=== PATIENT | female | born 1960 | race African-American/Black ===

== ENCOUNTER → 2017-04-14 | Outpatient (CLI) | payer OTHER ==
--- NOTE | 2017-04-14 10:17 | RAD ---
DATE: 04/14/2017 EXAM: DIGITAL SCREEN BILAT W/CAD HISTORY: Screening mammogram. Skin moles and lesions throughout both breasts. COMPARISON: Mammogram from 2015, 2014 and 2013. This study was interpreted with the benefit of Computerized Aided Detection (CAD). FINDINGS: Breast Density: SCATTERED The breast parenchyma shows scattered fibroglandular densities. Breast parenchyma level B. The skin and nipples are within normal limits. No suspicious calcifications, spiculated masses or areas of architectural distortion. Benign breast calcification. Likely bilateral intraparenchymal lymph nodes. IMPRESSION: No mammographic evidence of malignancy. BI-RADS CATEGORY: 2 BENIGN FINDING(S) RECOMMENDED FOLLOW-UP: 12M 12 MONTH FOLLOW-UP PQRS compliance statement: Patient information was entered into a reminder system with a target due date 04/14/2018 for the next mammogram. Mammography is a sensitive method for finding small breast cancers, but it does not detect them all and is not a substitute for careful clinical examination. A negative mammogram does not negate a clinically suspicious finding and should not result in delay in biopsying a clinically suspicious abnormality. "Our facility is accredited by the [employer] Mammography [employer]."
== END | disposition home or self-care (01) ==
LOC: MAMMO 09:30
PROVIDERS: ATTEND Family Medicine
DX: Z12.31 Encounter for screening mammogram for malignant neoplasm of breast (principal)
CPT/HCPCS: G0202; 77067

== ENCOUNTER → 2018-04-23 | Outpatient (CLI) | payer OTHER ==
--- NOTE | 2018-04-26 12:29 | RAD ---
DATE: April 23, 2018 EXAM: DIGITAL SCREEN BILAT W/CAD HISTORY: Screening study. COMPARISON: 2015 and 2017 This study was interpreted with the benefit of Computerized Aided Detection (CAD). FINDINGS: Breast Density: SCATTERED The breast parenchyma shows scattered fibroglandular densities. Breast parenchyma level B.. There are no dominant suspicious masses, suspicious microcalcifications or evidence of architectural distortion. IMPRESSION: No mammographic indicators for malignancy. BI-RADS CATEGORY: 1 NEGATIVE RECOMMENDED FOLLOW-UP: 12M 12 MONTH FOLLOW-UP PQRS compliance statement: Patient information was entered into a reminder system with a target due date April 24, 2019 for the next mammogram. Mammography is a sensitive method for finding small breast cancers, but it does not detect them all and is not a substitute for careful clinical examination. A negative mammogram does not negate a clinically suspicious finding and should not result in delay in biopsying a clinically suspicious abnormality. "Our facility is accredited by the [employer] Mammography [employer]." The patient's breast density may affect the ability of mammography to detect breast cancer. There are 4 categories of breast density, A, B, C and D. Breast density A means that most of the breast tissue is replaced with adipose tissue and therefore is not dense. Breast density B means that the breast tissue is mildly dense and scattered. Breast density C means that the breast tissue is heterogeneously dense. Breast density D means that the breast tissue is very dense. Breast densities especially C and D may decrease the sensitivity of mammography to detect breast cancer. Therefore, the patient may benefit from 3-D breast mammography (3D breast tomography) as a part of their screening mammogram. Insurance may or may not pay for this additional imaging. The patient's breast density based on today's mammogram is category B.
== END | disposition home or self-care (01) ==
LOC: MAMMO 14:50
PROVIDERS: ATTEND Pediatrics
DX: Z12.31 Encounter for screening mammogram for malignant neoplasm of breast (principal)
CPT/HCPCS: 77067

== ENCOUNTER 2018-09-18 22:35 | Inpatient (IN) | payer OTHER ==
[~2018-09-18] VITALS: Ht 165.1 cm; Wt 95.8 kg
[2018-09-18 23:27] LABS: BILIRUBIN,URINE NEGATIVE (NEG); CLARITY,URINE CLEAR; COLOR,URINE YELLOW; NITRITE,URINE NEGATIVE (NEG); PH,URINE 5.5; PROTEIN,URINE NEGATIVE (NEG-TRACE); UROBILINOGEN,URINE 0.2 mg/dL (0.2 mg/dL)
--- NOTE | 2018-09-18 23:31 | PHYS DOC ---
Adult General Chief Complaint Chief Complaint: ABDOMINAL PAIN HPI HPI Patient is a 58 year old f wtih cc of abdo pain epigastric x 3 days radiates to back wosre wtih eating, no fever sharp took motrin with minimal relief no etoh s/p mathew in the past. on trulicity for diabetes. Review of Systems Review of Systems Constitutional: Denies fever or chills [] Eyes: Denies change in visual acuity, redness, or eye pain [] HENT: Denies nasal congestion or sore throat [] Respiratory: Denies cough or shortness of breath [] Musculoskeletal: Denies back pain or joint pain [] Integument: Denies rash or skin lesions [] Neurologic: Denies headache, focal weakness or sensory changes [] Endocrine: Denies polyuria or polydipsia [] All other systems were reviewed and found to be within normal limits, except as documented in this note. Current Medications Current Medications Current Medications Medications (Trade) Dose Ordered Sig/Silvino Start Time Stop Time Status Last Admin Dose Admin Acetaminophen (Tylenol) 1,000 mg 1X ONCE 09/19/18 00:00 09/19/18 00:28 DC 09/19/18 00:38 1,000 MG Multi-Ingredient Mouthwash/Gargle (Gi Cocktail) 20 ml 1X ONCE 09/19/18 00:00 09/19/18 00:28 DC 09/19/18 00:38 20 ML Sodium Chloride 1,000 ml @ 1,000 mls/hr 1X ONCE 09/19/18 00:00 09/19/18 00:59 DC 09/19/18 00:40 1,000 MLS/HR Physical Exam Physical Exam Constitutional: Well developed, well nourished, no acute distress, non-toxic appearance. [] HENT: Normocephalic, atraumatic, bilateral external ears normal, oropharynx moist, no oral exudates, nose normal. [] Eyes: PERRLA, EOMI, conjunctiva normal, no discharge. [] Neck: Normal range of motion, no tenderness, supple, no stridor. [] Cardiovascular:mild tachy Lungs & Thorax: Bilateral breath sounds clear to auscultation [] Abdomen: Bowel sounds normal, soft, epigastric tenderness, no masses, no pulsatile masses. [] Skin: Warm, dry, no erythema, no rash. [] Back: No tenderness, no CVA tenderness. [] Extremities: No tenderness, no cyanosis, no clubbing, ROM intact, no edema. [] Neurologic: Alert and oriented X 3, normal motor function, normal sensory function, no focal deficits noted. [] Psychologic: Affect normal, judgement normal, mood normal. [] Current Patient Data Vital Signs Vital Signs Date Time Temp Pulse Resp B/P (MAP) Pulse Ox O2 Delivery O2 Flow Rate FiO2 09/18/18 23:39 97.6 116 18 143/88 (106) 96 97.6 Lab Values Laboratory Tests Test 09/18/18 22:35 09/18/18 22:48 09/18/18 23:35 Urine Collection Type Unknown Urine Color Yellow Urine Clarity Clear Urine pH 5.5 Urine Specific [place] 1.025 Urine Protein Negative mg/dL (NEG-TRACE) Urine Glucose (UA) Negative mg/dL (NEG) Urine Ketones (Stick) Negative mg/dL (NEG) Urine Blood Negative (NEG) Urine Nitrite Negative (NEG) Urine Bilirubin Negative (NEG) Urine Urobilinogen Dipstick 0.2 mg/dL (0.2 mg/dL) Urine Leukocyte Esterase Small (NEG) Urine RBC 0 /HPF (0-2) Urine WBC 1-4 /HPF (0-4) Urine Squamous Epithelial Cells Many /LPF Urine Bacteria Few /HPF (0-FEW) Urine Mucus Marked /LPF POC Urine HCG, Qualitative Hcg negative (Negative) White Blood Count 10.0 x10^3/uL (4.0-11.0) Red Blood Count 4.66 x10^6/uL (3.50-5.40) Hemoglobin 13.0 g/dL (12.0-15.5) Hematocrit 39.2 % (36.0-47.0) Mean Corpuscular Volume 84 fL (79-100) Mean Corpuscular Hemoglobin 28 pg (25-35) Mean Corpuscular Hemoglobin Concent 33 g/dL (31-37) Red Cell Distribution Width 14.8 % (11.5-14.5) H Platelet Count 272 x10^3/uL (140-400) Neutrophils (%) (Auto) 66 % (31-73) Lymphocytes (%) (Auto) 23 % (24-48) L Monocytes (%) (Auto) 8 % (0-9) Eosinophils (%) (Auto) 2 % (0-3) Basophils (%) (Auto) 1 % (0-3) Neutrophils # (Auto) 6.6 x10^3uL (1.8-7.7) Lymphocytes # (Auto) 2.3 x10^3/uL (1.0-4.8) Monocytes # (Auto) 0.8 x10^3/uL (0.0-1.1) Eosinophils # (Auto) 0.2 x10^3/uL (0.0-0.7) Basophils # (Auto) 0.1 x10^3/uL (0.0-0.2) Sodium Level 141 mmol/L (136-145) Potassium Level 4.0 mmol/L (3.5-5.1) Chloride Level 102 mmol/L (98-107) Carbon Dioxide Level 28 mmol/L (21-32) Anion Gap 11 (6-14) Blood Urea Nitrogen 12 mg/dL (7-20) Creatinine 0.9 mg/dL (0.6-1.0) Estimated GFR (Cockcroft-Gault) 77.8 BUN/Creatinine Ratio 13 (6-20) Glucose Level 174 mg/dL (70-99) H Calcium Level 9.5 mg/dL (8.5-10.1) Total Bilirubin 0.4 mg/dL (0.2-1.0) Aspartate Amino Transferase (AST) 14 U/L (15-37) L Alanine Aminotransferase (ALT) 21 U/L (14-59) Alkaline Phosphatase 92 U/L (46-116) Troponin I Quantitative < 0.017 ng/mL (0.000-0.055) Total Protein 8.3 g/dL (6.4-8.2) H Albumin 3.9 g/dL (3.4-5.0) Albumin/Globulin Ratio 0.9 (1.0-1.7) L Lipase 1348 U/L (73-393) H Laboratory Tests 09/18/18 23:35 Laboratory Tests 09/18/18 23:35 EKG EKG [@2324; HR 114BPM; sinus tachycardia.no definite ischemic changes Radiology/Procedures Radiology/Procedures [] Impressions: IMPRESSION: 1. Findings of acute edematous interstitial pancreatitis. No evidence of pseudocyst. 2. Fibroid uterus. Electronically signed by: Nithin Porter DO (09/19/2018 1:55 AM) [facility] Course & Med Decision Making Course & Med Decision Making Pertinent Labs and Imaging studies reviewed. (See chart for details) []58 yo f with pancreatitis first episode unclear etiology was tachy on arrival improved after fluids. ?trulicity unsure exactly of etiology will admit for gi consult, hydration pain control admit to hospitalist service per usual local protocol Dragon Disclaimer Dragon Disclaimer This electronic medical record was generated, in whole or in part, using a voice recognition dictation system. Departure Departure Impression: Primary Impression: Pancreatitis Disposition: 09 ADMITTED INPATIENT Admitting Physician: Other Condition: STABLE Referrals: HARVEY ROCHA MD (PCP) LUMA FULLER MD Sep 18, 2018 23:31
[2018-09-18 23:36] LABS: BACTERIA,URINE FEW /HPF (0-FEW); RBC,URINE 0 /HPF (0-2); SQUAMOUS EPITHELIAL CELL,UR MANY /LPF
[2018-09-18 23:41] LABS: BASO # 0.1 x10^3/uL (0.0-0.2); BASO % 1 % (0-3); EOS # 0.2 x10^3/uL (0.0-0.7); EOS % 2 % (0-3); HEMATOCRIT 39.2 % (36.0-47.0); LYMPH # 2.3 x10^3/uL (1.0-4.8); LYMPH % 23 % (24-48); MEAN CORPUSCULAR HEMOGLOBIN 28 pg (25-35); MEAN CORPUSCULAR HGB CONC 33 g/dL (31-37); MEAN CORPUSCULAR VOLUME 84 fL (79-100); MONO # 0.8 x10^3/uL (0.0-1.1); MONO % 8 % (0-9); NEUT # 6.6 x10^3uL (1.8-7.7); NEUT % 66 % (31-73); PLATELET COUNT 272 x10^3/uL (140-400); RED BLOOD COUNT 4.66 x10^6/uL (3.50-5.40); RED CELL DISTRIBUTION WIDTH 14.8 % (11.5-14.5)
[2018-09-18 23:49] LABS: CALCIUM 9.5 mg/dL (8.5-10.1); CREATININE 0.9 mg/dL (0.6-1.0); GFR 77.8
[2018-09-18 23:55] LABS: ALBUMIN 3.9 g/dL (3.4-5.0); ALBUMIN/GLOBULIN RATIO 0.9 (1.0-1.7); TOTAL BILIRUBIN 0.4 mg/dL (0.2-1.0); TOTAL PROTEIN 8.3 g/dL (6.4-8.2)
[2018-09-19] MEDS ORDERED: ACETAMINOPHEN 500 MG TABLET PO ONE
[2018-09-19] MEDS ORDERED: IV NORMAL SALINE 1000ML BAG 1,000 ML IV ONE
[2018-09-19] MEDS ORDERED: LIDO:MAALOX 1:1 20 ML SINGLE DOSE. SWSW ONE
[2018-09-19] MEDS ORDERED: ONDANSETRON PF 4 MG/2 ML VIAL. IV PRN (00:30)
[2018-09-19] MEDS: MORPHINE SULFATE 4 MG/ML VIAL. IV PRN ×2 (00:39→08:50)
--- NOTE | 2018-09-19 01:10 | NUR ---
The patient, KHURRAM CHAVEZ, 58 y/o, F admitted by IRAM SANTOYO MD, was given written information regarding hospital policies, unit procedures and contact persons. Patient arrived in room 560 at this time. Patient was transported via wheelchair by ED staff. Valuables were checked and noted. Patient is resting in bed with family at the bedside. Patient states no pain or other needs at this time. This RN will continue to monitor this patient.
[2018-09-19] MEDS ORDERED: IOHEXOL 300 MG/ML 100ML VIAL. IV ONE (01:30)
[2018-09-19] MEDS ORDERED: CONTRAST GIVEN. MC PRN (01:30)
--- NOTE | 2018-09-19 01:58 | RAD ---
PQRS Compliance statement: One or more of the following individualized dose reduction techniques were utilized for this examination: 1. Automated exposure control. 2. Adjustment of the mA and/or kV according to patient size. 3. Use of iterative reconstruction technique. Indication:pancreatitis, r/o pseudocyst, abscess, OMNI 300, 75ml TECHNIQUE: CT abdomen and pelvis with IV contrast with multiplanar reformats. COMPARISON: None FINDINGS: Heart is normal in size. No pericardial or pleural effusion. Clear lung bases. Liver, spleen, adrenals within normal limits. Status post cholecystectomy. Mild peripancreatic inflammatory changes seen adjacent to the pancreatic tail. No peripancreatic fluid collection. No nephrolithiasis or hydronephrosis. No enlarged retroperitoneal or pelvic adenopathy. No free pelvic fluid or ascites. No bowel obstruction. Normal appendix. Uterus is anteverted with multiple fibroids, the largest measuring 4.5 x 4.1 cm in the fundus. Urinary bladder is within normal limits. No pneumoperitoneum. No suspicious bony lesion. IMPRESSION: 1. Findings of acute edematous interstitial pancreatitis. No evidence of pseudocyst. 2. Fibroid uterus. Electronically signed by: Nithin Porter DO (09/19/2018 1:55 AM) [facility]
[2018-09-19 03:00] VITALS: BP 147/94
[2018-09-19] MEDS: IV NORMAL SALINE 1000ML BAG 1,000 ML IV SCH ×3 (03:34→16:30)
[2018-09-19 07:00] VITALS: BP 132/89
--- NOTE | 2018-09-19 10:33 | PDOC2 ---
CONSULT Date of Consult Date of Consult DATE: 09/19/18 TIME: 10:20 Reason for Consult Reason for Consult: acute pancreatitis History of Present Illness Reason for Visit: This is a 58 yo female with history of DM on Trulicity for 2 years and with history of GERD on pantoprazole and cholecystectomy for gallstones 30 years ago. Presents now with 2 days of epigastric pain- she thought from augmentin which gives her gas but progressed. Cme to ER where CT and labs suggest pancreatitis- new onset - she denies alcohol and NO prior history of pancreatitis. Prior to now, only occasional gas, no abd pain or severe dyspeptic symptoms, only heartburn controlled by PPI. Had colonoscopy about 5 years ago- small polyp removed. Past Medical History GI: GERD Endocrine: Diabetes Past Surgical History Past Surgical History: Cholecystectomy Social History No ALCOHOL: rare Current Medications Current Medications Current Medications Sodium Chloride 1,000 ml @ 1,000 mls/hr 1X ONCE IV Last administered on at 00:40; Start 09/19/18 at 00:00; Stop 09/19/18 at 00:59; Status DC Multi-Ingredient Mouthwash/Gargle (Gi Cocktail) 20 ml 1X ONCE SWSW Last administered on 09/19/18at 00:38; Start 09/19/18 at 00:00; Stop 09/19/18 at 00:28 ; Status DC Acetaminophen (Tylenol) 1,000 mg 1X ONCE PO Last administered on 09/19/18at 00: 38; Start 09/19/18 at 00:00; Stop 09/19/18 at 00:28; Status DC Ondansetron HCl (Zofran) 4 mg PRN Q8HRS PRN IV NAUSEA/VOMITING Last administered on 09/19/18at 00:40; Start 09/19/18 at 00:30; Stop 09/20/18 at 00:29 Morphine Sulfate (Morphine Sulfate) 4 mg PRN Q2HR PRN IV PAIN Last administered on 09/19/18at 08:50; Start 09/19/18 at 00:30; Stop 09/20/18 at 00:29 Sodium Chloride 1,000 ml @ 125 mls/hr Q8H IV Last administered on 09/19/18at 03 :34; Start 09/19/18 at 00:30; Stop 09/20/18 at 00:29 Iohexol (Omnipaque 300 Mg/ml) 75 ml 1X ONCE IV Last administered on 09/19/18at 01:44; Start 09/19/18 at 01:30; Stop 09/19/18 at 01:31; Status DC Info (CONTRAST GIVEN -- Rx MONITORING) 1 each PRN DAILY PRN MC SEE COMMENTS; Start 09/19/18 at 01:30; Stop 09/21/18 at 01:29 Allergies Allergies: Coded Allergies: No Known Drug Allergies (Unverified , 09/19/18) ROS Gastrointestinal: Yes Abdominal Pain Physical Exam General: Alert, Oriented X3 HEENT: PERRLA Lungs: Clear to auscultation Heart: Regular rate, Normal S1, Normal S2 Abdomen: Normal bowel sounds, Soft, No hepatosplenomegaly, Other (very mild tenderness) Extremities: No clubbing, No cyanosis Neuro: Normal gait, Normal speech Psych/Mental Status: Mental status NL Vitals VITALS Vital Signs Date Time Temp Pulse Resp B/P (MAP) Pulse Ox O2 Delivery O2 Flow Rate FiO2 09/19/18 08:50 96 Room Air 09/19/18 07:00 98.3 103 18 132/89 (103) 98.3 Labs Labs Laboratory Tests Test 09/18/18 22:35 09/18/18 22:48 09/18/18 23:35 Urine Collection Type Unknown Urine Color Yellow Urine Clarity Clear Urine pH 5.5 Urine Specific [place] 1.025 Urine Protein Negative mg/dL (NEG-TRACE) Urine Glucose (UA) Negative mg/dL (NEG) Urine Ketones (Stick) Negative mg/dL (NEG) Urine Blood Negative (NEG) Urine Nitrite Negative (NEG) Urine Bilirubin Negative (NEG) Urine Urobilinogen Dipstick 0.2 mg/dL (0.2 mg/dL) Urine Leukocyte Esterase Small (NEG) Urine RBC 0 /HPF (0-2) Urine WBC 1-4 /HPF (0-4) Urine Squamous Epithelial Cells Many /LPF Urine Bacteria Few /HPF (0-FEW) Urine Mucus Marked /LPF Bedside Urine HCG, Qualitative Hcg negative (Negative) White Blood Count 10.0 x10^3/uL (4.0-11.0) Red Blood Count 4.66 x10^6/uL (3.50-5.40) Hemoglobin 13.0 g/dL (12.0-15.5) Hematocrit 39.2 % (36.0-47.0) Mean Corpuscular Volume 84 fL (79-100) Mean Corpuscular Hemoglobin 28 pg (25-35) Mean Corpuscular Hemoglobin Concent 33 g/dL (31-37) Red Cell Distribution Width 14.8 % (11.5-14.5) Platelet Count 272 x10^3/uL (140-400) Neutrophils (%) (Auto) 66 % (31-73) Lymphocytes (%) (Auto) 23 % (24-48) Monocytes (%) (Auto) 8 % (0-9) Eosinophils (%) (Auto) 2 % (0-3) Basophils (%) (Auto) 1 % (0-3) Neutrophils # (Auto) 6.6 x10^3uL (1.8-7.7) Lymphocytes # (Auto) 2.3 x10^3/uL (1.0-4.8) Monocytes # (Auto) 0.8 x10^3/uL (0.0-1.1) Eosinophils # (Auto) 0.2 x10^3/uL (0.0-0.7) Basophils # (Auto) 0.1 x10^3/uL (0.0-0.2) Sodium Level 141 mmol/L (136-145) Potassium Level 4.0 mmol/L (3.5-5.1) Chloride Level 102 mmol/L (98-107) Carbon Dioxide Level 28 mmol/L (21-32) Anion Gap 11 (6-14) Blood Urea Nitrogen 12 mg/dL (7-20) Creatinine 0.9 mg/dL (0.6-1.0) Estimated GFR (Cockcroft-Gault) 77.8 BUN/Creatinine Ratio 13 (6-20) Glucose Level 174 mg/dL (70-99) Calcium Level 9.5 mg/dL (8.5-10.1) Total Bilirubin 0.4 mg/dL (0.2-1.0) Aspartate Amino Transf (AST/SGOT) 14 U/L (15-37) Alanine Aminotransferase (ALT/SGPT) 21 U/L (14-59) Alkaline Phosphatase 92 U/L (46-116) Troponin I Quantitative < 0.017 ng/mL (0.000-0.055) Total Protein 8.3 g/dL (6.4-8.2) Albumin 3.9 g/dL (3.4-5.0) Albumin/Globulin Ratio 0.9 (1.0-1.7) Lipase 1348 U/L (73-393) Laboratory Tests Test 09/18/18 22:35 09/18/18 22:48 09/18/18 23:35 Urine Collection Type Unknown Urine Color Yellow Urine Clarity Clear Urine pH 5.5 Urine Specific [place] 1.025 Urine Protein Negative mg/dL (NEG-TRACE) Urine Glucose (UA) Negative mg/dL (NEG) Urine Ketones (Stick) Negative mg/dL (NEG) Urine Blood Negative (NEG) Urine Nitrite Negative (NEG) Urine Bilirubin Negative (NEG) Urine Urobilinogen Dipstick 0.2 mg/dL (0.2 mg/dL) Urine Leukocyte Esterase Small (NEG) Urine RBC 0 /HPF (0-2) Urine WBC 1-4 /HPF (0-4) Urine Squamous Epithelial Cells Many /LPF Urine Bacteria Few /HPF (0-FEW) Urine Mucus Marked /LPF Bedside Urine HCG, Qualitative Hcg negative (Negative) White Blood Count 10.0 x10^3/uL (4.0-11.0) Red Blood Count 4.66 x10^6/uL (3.50-5.40) Hemoglobin 13.0 g/dL (12.0-15.5) Hematocrit 39.2 % (36.0-47.0) Mean Corpuscular Volume 84 fL (79-100) Mean Corpuscular Hemoglobin 28 pg (25-35) Mean Corpuscular Hemoglobin Concent 33 g/dL (31-37) Red Cell Distribution Width 14.8 % (11.5-14.5) Platelet Count 272 x10^3/uL (140-400) Neutrophils (%) (Auto) 66 % (31-73) Lymphocytes (%) (Auto) 23 % (24-48) Monocytes (%) (Auto) 8 % (0-9) Eosinophils (%) (Auto) 2 % (0-3) Basophils (%) (Auto) 1 % (0-3) Neutrophils # (Auto) 6.6 x10^3uL (1.8-7.7) Lymphocytes # (Auto) 2.3 x10^3/uL (1.0-4.8) Monocytes # (Auto) 0.8 x10^3/uL (0.0-1.1) Eosinophils # (Auto) 0.2 x10^3/uL (0.0-0.7) Basophils # (Auto) 0.1 x10^3/uL (0.0-0.2) Sodium Level 141 mmol/L (136-145) Potassium Level 4.0 mmol/L (3.5-5.1) Chloride Level 102 mmol/L (98-107) Carbon Dioxide Level 28 mmol/L (21-32) Anion Gap 11 (6-14) Blood Urea Nitrogen 12 mg/dL (7-20) Creatinine 0.9 mg/dL (0.6-1.0) Estimated GFR (Cockcroft-Gault) 77.8 BUN/Creatinine Ratio 13 (6-20) Glucose Level 174 mg/dL (70-99) Calcium Level 9.5 mg/dL (8.5-10.1) Total Bilirubin 0.4 mg/dL (0.2-1.0) Aspartate Amino Transf (AST/SGOT) 14 U/L (15-37) Alanine Aminotransferase (ALT/SGPT) 21 U/L (14-59) Alkaline Phosphatase 92 U/L (46-116) Troponin I Quantitative < 0.017 ng/mL (0.000-0.055) Total Protein 8.3 g/dL (6.4-8.2) Albumin 3.9 g/dL (3.4-5.0) Albumin/Globulin Ratio 0.9 (1.0-1.7) Lipase 1348 U/L (73-393) Images Images CT- pancreatitis without mass or CBD dilation s/p mathew Assessment/Plan Assessment/Plan Acute pancreatitis- apparently new- main risk factor is not alcohol or gallstones (s/p mathew and no LFT abnormalities or CBD changes on CT). Has been on Trulicity for 2 years but this could be related as trigger. Plan- stop Trulicity and later consult with endocrine regarding options going forward NPO then CLD with pain control for pancreatitis ALHAJI LI MD Sep 19, 2018 10:33
[2018-09-19 10:42] VITALS: BP 129/81
--- NOTE | 2018-09-19 12:27 | PDOC1 ---
History and Physical Date of Admission Date of Admission 09/19/18 Identification/Chief Complaint Chief Complaint ronald norris Source Source: Chart review, Patient History of Present Illness History of Present Illness Patient is a 58 yo female with history of DM on Trulicity for 2 years who had been in her usual stated of health until his prior to her admission when she started complaining of epigastric pain with radiation to the back. The patient describes the pain as a sharp sensation 9-10 out of 10 intensity at the worst times intermittent not associated with nausea vomiting or diarrhea. The patient describes her diet very rich in cheese. But she has been doing this for a long time, the patient denies having fried foods, or any other dietary transgressions. The patient also carries a history of GERD on pantoprazole. She had a cholecystectomy for gallstones 30 years ago. She denies excessive alcohol intake no history of liver disease no history of black tarry stools nor hematemesis reported. She was found to have findings consistent with pancreatitis on imaging studies and laboratory data which confirms her diagnosis. Given that the patient has been on to elicit the this will have to be discontinued moving forward Of care has been explained in detail to the patient addressed all the concerns of the best of my abilities Past Medical History GI: GERD Endocrine: Diabetes Past Surgical History Past Surgical History: Cholecystectomy Social History Smoke: No ALCOHOL: rare Current Medications Current Medications Current Medications Medications (Trade) Dose Ordered Sig/Silvino Start Time Stop Time Status Last Admin Dose Admin Acetaminophen (Tylenol) 1,000 mg 1X ONCE 09/19/18 00:00 09/19/18 00:28 DC 09/19/18 00:38 1,000 MG Info (CONTRAST GIVEN -- Rx MONITORING) 1 each PRN DAILY PRN 09/19/18 01:30 09/21/18 01:29 Iohexol (Omnipaque 300 Mg/ml) 75 ml 1X ONCE 09/19/18 01:30 09/19/18 01:31 DC 09/19/18 01:44 75 ML Morphine Sulfate (Morphine Sulfate) 4 mg PRN Q2HR PRN 09/19/18 00:30 09/20/18 00:29 09/19/18 08:50 4 MG Multi-Ingredient Mouthwash/Gargle (Gi Cocktail) 20 ml 1X ONCE 09/19/18 00:00 09/19/18 00:28 DC 09/19/18 00:38 20 ML Ondansetron HCl (Zofran) 4 mg PRN Q8HRS PRN 09/19/18 00:30 09/20/18 00:29 09/19/18 00:40 4 MG Sodium Chloride 1,000 ml @ 125 mls/hr Q8H 09/19/18 00:30 09/20/18 00:29 09/19/18 03:34 125 MLS/HR Allergies Allergies Allergies Coded Allergies Type Severity Reaction Last Updated Verified No Known Drug Allergies 09/19/18 No ROS Review of System CONSTITUTIONAL: No fever or chills EYES: No recent changes SKIN: No rash or itching CARDIOVASCULAR: No chest pain, syncope, palpitations, or edema RESPIRATORY: No SOB or cough GASTROINTESTINAL: No nausea, vomiting or abdominal pain NEUROLOGICAL: No headaches or weakness ENDOCRINE: No cold or heat intolerance GENITOURINARY: No urgency or frequency of urination MUSCULOSKELETAL: No back pain or joint pain LYMPHATICS: No enlarged lymph nodes PSYCHIATRIC: No anxiety or depression Physical Exam Physical Exam GEN.: No apparent distress. Alert and oriented. HEENT: Head is normocephalic, atraumatic NECK: Supple. LUNGS: Clear to auscultation. HEART: RRR, S1, S2 present. Peripheral pulses intact ABDOMEN: Soft, nontender. Positive bowel sounds. EXTREMITIES: Without any cyanosis. NEUROLOGIC: Normal speech, normal tone PSYCHIATRIC: Normal affect, normal mood. SKIN: No ulcerations Vitals Vitals Vital Signs Date Time Temp Pulse Resp B/P (MAP) Pulse Ox O2 Delivery O2 Flow Rate FiO2 09/19/18 10:42 97.8 103 18 129/81 (97) 95 Room Air 97.8 Labs Labs Laboratory Tests Test 09/18/18 22:35 09/18/18 22:48 09/18/18 23:35 Urine Collection Type Unknown Urine Color Yellow Urine Clarity Clear Urine pH 5.5 Urine Specific [place] 1.025 Urine Protein Negative mg/dL (NEG-TRACE) Urine Glucose (UA) Negative mg/dL (NEG) Urine Ketones (Stick) Negative mg/dL (NEG) Urine Blood Negative (NEG) Urine Nitrite Negative (NEG) Urine Bilirubin Negative (NEG) Urine Urobilinogen Dipstick 0.2 mg/dL (0.2 mg/dL) Urine Leukocyte Esterase Small (NEG) Urine RBC 0 /HPF (0-2) Urine WBC 1-4 /HPF (0-4) Urine Squamous Epithelial Cells Many /LPF Urine Bacteria Few /HPF (0-FEW) Urine Mucus Marked /LPF Bedside Urine HCG, Qualitative Hcg negative (Negative) White Blood Count 10.0 x10^3/uL (4.0-11.0) Red Blood Count 4.66 x10^6/uL (3.50-5.40) Hemoglobin 13.0 g/dL (12.0-15.5) Hematocrit 39.2 % (36.0-47.0) Mean Corpuscular Volume 84 fL (79-100) Mean Corpuscular Hemoglobin 28 pg (25-35) Mean Corpuscular Hemoglobin Concent 33 g/dL (31-37) Red Cell Distribution Width 14.8 % (11.5-14.5) Platelet Count 272 x10^3/uL (140-400) Neutrophils (%) (Auto) 66 % (31-73) Lymphocytes (%) (Auto) 23 % (24-48) Monocytes (%) (Auto) 8 % (0-9) Eosinophils (%) (Auto) 2 % (0-3) Basophils (%) (Auto) 1 % (0-3) Neutrophils # (Auto) 6.6 x10^3uL (1.8-7.7) Lymphocytes # (Auto) 2.3 x10^3/uL (1.0-4.8) Monocytes # (Auto) 0.8 x10^3/uL (0.0-1.1) Eosinophils # (Auto) 0.2 x10^3/uL (0.0-0.7) Basophils # (Auto) 0.1 x10^3/uL (0.0-0.2) Sodium Level 141 mmol/L (136-145) Potassium Level 4.0 mmol/L (3.5-5.1) Chloride Level 102 mmol/L (98-107) Carbon Dioxide Level 28 mmol/L (21-32) Anion Gap 11 (6-14) Blood Urea Nitrogen 12 mg/dL (7-20) Creatinine 0.9 mg/dL (0.6-1.0) Estimated GFR (Cockcroft-Gault) 77.8 BUN/Creatinine Ratio 13 (6-20) Glucose Level 174 mg/dL (70-99) Calcium Level 9.5 mg/dL (8.5-10.1) Total Bilirubin 0.4 mg/dL (0.2-1.0) Aspartate Amino Transf (AST/SGOT) 14 U/L (15-37) Alanine Aminotransferase (ALT/SGPT) 21 U/L (14-59) Alkaline Phosphatase 92 U/L (46-116) Troponin I Quantitative < 0.017 ng/mL (0.000-0.055) Total Protein 8.3 g/dL (6.4-8.2) Albumin 3.9 g/dL (3.4-5.0) Albumin/Globulin Ratio 0.9 (1.0-1.7) Lipase 1348 U/L (73-393) Laboratory Tests Test 09/18/18 22:35 09/18/18 22:48 09/18/18 23:35 Urine Collection Type Unknown Urine Color Yellow Urine Clarity Clear Urine pH 5.5 Urine Specific [place] 1.025 Urine Protein Negative mg/dL (NEG-TRACE) Urine Glucose (UA) Negative mg/dL (NEG) Urine Ketones (Stick) Negative mg/dL (NEG) Urine Blood Negative (NEG) Urine Nitrite Negative (NEG) Urine Bilirubin Negative (NEG) Urine Urobilinogen Dipstick 0.2 mg/dL (0.2 mg/dL) Urine Leukocyte Esterase Small (NEG) Urine RBC 0 /HPF (0-2) Urine WBC 1-4 /HPF (0-4) Urine Squamous Epithelial Cells Many /LPF Urine Bacteria Few /HPF (0-FEW) Urine Mucus Marked /LPF Bedside Urine HCG, Qualitative Hcg negative (Negative) White Blood Count 10.0 x10^3/uL (4.0-11.0) Red Blood Count 4.66 x10^6/uL (3.50-5.40) Hemoglobin 13.0 g/dL (12.0-15.5) Hematocrit 39.2 % (36.0-47.0) Mean Corpuscular Volume 84 fL (79-100) Mean Corpuscular Hemoglobin 28 pg (25-35) Mean Corpuscular Hemoglobin Concent 33 g/dL (31-37) Red Cell Distribution Width 14.8 % (11.5-14.5) Platelet Count 272 x10^3/uL (140-400) Neutrophils (%) (Auto) 66 % (31-73) Lymphocytes (%) (Auto) 23 % (24-48) Monocytes (%) (Auto) 8 % (0-9) Eosinophils (%) (Auto) 2 % (0-3) Basophils (%) (Auto) 1 % (0-3) Neutrophils # (Auto) 6.6 x10^3uL (1.8-7.7) Lymphocytes # (Auto) 2.3 x10^3/uL (1.0-4.8) Monocytes # (Auto) 0.8 x10^3/uL (0.0-1.1) Eosinophils # (Auto) 0.2 x10^3/uL (0.0-0.7) Basophils # (Auto) 0.1 x10^3/uL (0.0-0.2) Sodium Level 141 mmol/L (136-145) Potassium Level 4.0 mmol/L (3.5-5.1) Chloride Level 102 mmol/L (98-107) Carbon Dioxide Level 28 mmol/L (21-32) Anion Gap 11 (6-14) Blood Urea Nitrogen 12 mg/dL (7-20) Creatinine 0.9 mg/dL (0.6-1.0) Estimated GFR (Cockcroft-Gault) 77.8 BUN/Creatinine Ratio 13 (6-20) Glucose Level 174 mg/dL (70-99) Calcium Level 9.5 mg/dL (8.5-10.1) Total Bilirubin 0.4 mg/dL (0.2-1.0) Aspartate Amino Transf (AST/SGOT) 14 U/L (15-37) Alanine Aminotransferase (ALT/SGPT) 21 U/L (14-59) Alkaline Phosphatase 92 U/L (46-116) Troponin I Quantitative < 0.017 ng/mL (0.000-0.055) Total Protein 8.3 g/dL (6.4-8.2) Albumin 3.9 g/dL (3.4-5.0) Albumin/Globulin Ratio 0.9 (1.0-1.7) Lipase 1348 U/L (73-393) VTE Prophylaxis Ordered VTE Prophylaxis Devices: Yes VTE Pharmacological Prophylaxi: No Assessment/Plan Assessment/Plan Acute pancreatitis Abdominal pain secondary to the above resolved Dietary transgression with excess fat in diet History of GERD Obesity with a BMI of 35 Plan: Continue with nothing by mouth except ice chips for comfort IV fluid resuscitation with alar We will readdress in the a.m. Further recommendations based on the clinical course DVT prophylaxis with SCD and CHACHA Rhoades MD Sep 19, 2018 12:27
[2018-09-19 14:36] VITALS: BP 132/74
--- NOTE | 2018-09-19 16:30 | NUR ---
The bag of fluids is still full and running.
[2018-09-19 19:00] VITALS: BP 150/90
[2018-09-19 23:00] VITALS: BP 148/99
[2018-09-20 03:00] VITALS: BP 145/95
[2018-09-20 07:00] VITALS: BP 143/84
[2018-09-20 07:32] LABS: ALBUMIN 3.2 g/dL (3.4-5.0); DIRECT BILIRUBIN 0.1 mg/dL (0.0-0.2); TOTAL BILIRUBIN 0.4 mg/dL (0.2-1.0); TOTAL PROTEIN 7.2 g/dL (6.4-8.2)
[2018-09-20 11:10] VITALS: BP 147/87
--- NOTE | 2018-09-20 11:19 | PDOC ---
Subjective: Subjective: Feels better today - would like to eat/drink. Maybe very minimal epigastric discomfort - no n/v, hasn't needed pain meds. Objective: Vital Signs: Vital Signs Date Time Temp Pulse Resp B/P (MAP) Pulse Ox O2 Delivery O2 Flow Rate FiO2 09/20/18 07:00 97.9 98 18 143/84 (103) 99 Room Air 97.9 Labs: Laboratory Tests Test 09/20/18 06:22 09/20/18 07:54 Total Bilirubin 0.4 mg/dL Direct Bilirubin 0.1 mg/dL Aspartate Amino Transf (AST/SGOT) 14 U/L Alanine Aminotransferase (ALT/SGPT) 20 U/L Alkaline Phosphatase 76 U/L Total Protein 7.2 g/dL Albumin 3.2 g/dL Lipase 956 U/L Glucose (Fingerstick) 110 mg/dL Imaging: CT A/P IMPRESSION: 1. Findings of acute edematous interstitial pancreatitis. No evidence of pseudocyst. 2. Fibroid uterus. PE: GEN: NAD LUNGS: CTAB HEART: RRR ABD: S/ND, not particularly tender NEURO/PSYCH: A & O 3 A/P: Pancreatitis - ?related to Trulicity -s/p mathew, no alcohol, Ca++ WNL Heartburn - on PPI, no previous EGD CRC screen, h/o polyp - colonoscopy ~5 years ago -- Try [facility] milan - d/w RN and Dr. Boogie. Can check lipids and IgG4 for completeness. Consider referral to endocrinology as outpt. Screening colonoscopy as outpt, consider tandem EGD as well. KATIE OCHOA Sep 20, 2018 11:19
--- NOTE | 2018-09-20 11:35 | NUR ---
SW following. Discussed with RN, pt is from home alone, independent. RN advised no SW needs at this time. SW will continue to follow.
[2018-09-20] MEDS ORDERED: PANT20TA2 PO (11:38)
[2018-09-20] MEDS ORDERED: LINA5TAB PO (11:38)
[2018-09-20] MEDS ORDERED: CETI10CA PO (11:38)
[2018-09-20] MEDS ORDERED: ATOR20TA PO (11:38)
[2018-09-20] MEDS ORDERED: LISI10TA2 PO (11:38)
[2018-09-20] MEDS ORDERED: GABA300C18 PO (11:38)
[2018-09-20] MEDS ORDERED: METF500T16 PO (11:38)
[2018-09-20] MEDS ORDERED: FLUT16SP NS (11:38)
[2018-09-20] MEDS ORDERED: ERGO500027 PO (11:38)
[2018-09-20 11:43] LABS: CHOLESTEROL/HDL RATIO 3.9
--- NOTE | 2018-09-20 13:27 | EKG ---
[facility] [address] [place] [address] Test Date: 2018-09-18 Test Time: 23:24:44 Pat Name: KHURRAM CHAVEZ Department: Room: [facility] Gender: F [employer]: : 1960 Requested By: LUMA FULLER Order Number: [id number] Reading MD: Tico Sosa MD Measurements Intervals [place] Rate: 114 P: 45 WI: 148 QRS: 65 QRSD: 88 T: 19 QT: 284 QTc: 394 Interpretive Statements SINUS TACHYCARDIA NON-SPECIFIC ST/T CHANGES Electronically Signed On 09-28-2018 22:12:06 CDT by Tico Sosa MD
--- NOTE | 2018-09-20 13:48 | PDOC ---
PROGRESS NOTES Chief Complaint Chief Complaint Acute pancreatitis Abdominal pain secondary to the above resolved Dietary transgression with excess fat in diet History of GERD Obesity with a BMI of 35 Plan: start clear liquids today We will reassess in the a.m. Further recommendations based on the clinical course DVT prophylaxis with SCD and teds History of Present Illness History of Present Illness Patient feeling better today, she has regained her appetite. We will resume her home medications and hopefully advance her diet in hopes to discharge soon Vitals Vitals Vital Signs Date Time Temp Pulse Resp B/P (MAP) Pulse Ox O2 Delivery O2 Flow Rate FiO2 09/20/18 11:10 97.9 98 18 147/87 (107) 96 Room Air 97.9 Physical Exam General: Alert, Oriented X3 Heart: Regular rate, Normal S1, Normal S2 Abdomen: Normal bowel sounds, Soft, No hepatosplenomegaly, Other (very mild tenderness) Extremities: No clubbing, No cyanosis Labs LABS Laboratory Tests Test 09/20/18 06:22 09/20/18 07:54 09/20/18 11:12 Total Bilirubin 0.4 mg/dL (0.2-1.0) Direct Bilirubin 0.1 mg/dL (0.0-0.2) Aspartate Amino Transf (AST/SGOT) 14 U/L (15-37) Alanine Aminotransferase (ALT/SGPT) 20 U/L (14-59) Alkaline Phosphatase 76 U/L (46-116) Total Protein 7.2 g/dL (6.4-8.2) Albumin 3.2 g/dL (3.4-5.0) Triglycerides Level 60 mg/dL (0-150) Cholesterol Level 140 mg/dL (0-200) LDL Cholesterol, Calculated 92 mg/dL (0-100) VLDL Cholesterol, Calculated 12 mg/dL (0-40) Non-HDL Cholesterol Calculated 104 mg/dL (0-129) HDL Cholesterol 36 mg/dL (40-60) Cholesterol/HDL Ratio 3.9 Lipase 956 U/L (73-393) Glucose (Fingerstick) 110 mg/dL (70-99) 115 mg/dL (70-99) Comment Review of Relevant I have reviewed the following items vern (where applicable) has been applied. Labs Laboratory Tests Test 09/18/18 22:35 09/18/18 22:48 3/9/19 23:35 09/20/18 06:22 Urine Collection Type Unknown Urine Color Yellow Urine Clarity Clear Urine pH 5.5 Urine Specific [place] 1.025 Urine Protein Negative mg/dL (NEG-TRACE) Urine Glucose (UA) Negative mg/dL (NEG) Urine Ketones (Stick) Negative mg/dL (NEG) Urine Blood Negative (NEG) Urine Nitrite Negative (NEG) Urine Bilirubin Negative (NEG) Urine Urobilinogen Dipstick 0.2 mg/dL (0.2 mg/dL) Urine Leukocyte Esterase Small (NEG) Urine RBC 0 /HPF (0-2) Urine WBC 1-4 /HPF (0-4) Urine Squamous Epithelial Cells Many /LPF Urine Bacteria Few /HPF (0-FEW) Urine Mucus Marked /LPF Bedside Urine HCG, Qualitative Hcg negative (Negative) White Blood Count 10.0 x10^3/uL (4.0-11.0) Red Blood Count 4.66 x10^6/uL (3.50-5.40) Hemoglobin 13.0 g/dL (12.0-15.5) Hematocrit 39.2 % (36.0-47.0) Mean Corpuscular Volume 84 fL (79-100) Mean Corpuscular Hemoglobin 28 pg (25-35) Mean Corpuscular Hemoglobin Concent 33 g/dL (31-37) Red Cell Distribution Width 14.8 % (11.5-14.5) Platelet Count 272 x10^3/uL (140-400) Neutrophils (%) (Auto) 66 % (31-73) Lymphocytes (%) (Auto) 23 % (24-48) Monocytes (%) (Auto) 8 % (0-9) Eosinophils (%) (Auto) 2 % (0-3) Basophils (%) (Auto) 1 % (0-3) Neutrophils # (Auto) 6.6 x10^3uL (1.8-7.7) Lymphocytes # (Auto) 2.3 x10^3/uL (1.0-4.8) Monocytes # (Auto) 0.8 x10^3/uL (0.0-1.1) Eosinophils # (Auto) 0.2 x10^3/uL (0.0-0.7) Basophils # (Auto) 0.1 x10^3/uL (0.0-0.2) Sodium Level 141 mmol/L (136-145) Potassium Level 4.0 mmol/L (3.5-5.1) Chloride Level 102 mmol/L (98-107) Carbon Dioxide Level 28 mmol/L (21-32) Anion Gap 11 (6-14) Blood Urea Nitrogen 12 mg/dL (7-20) Creatinine 0.9 mg/dL (0.6-1.0) Estimated GFR (Cockcroft-Gault) 77.8 BUN/Creatinine Ratio 13 (6-20) Glucose Level 174 mg/dL (70-99) Calcium Level 9.5 mg/dL (8.5-10.1) Total Bilirubin 0.4 mg/dL (0.2-1.0) 0.4 mg/dL (0.2-1.0) Aspartate Amino Transf (AST/SGOT) 14 U/L (15-37) 14 U/L (15-37) Alanine Aminotransferase (ALT/SGPT) 21 U/L (14-59) 20 U/L (14-59) Alkaline Phosphatase 92 U/L (46-116) 76 U/L (46-116) Troponin I Quantitative < 0.017 ng/mL (0.000-0.055) Total Protein 8.3 g/dL (6.4-8.2) 7.2 g/dL (6.4-8.2) Albumin 3.9 g/dL (3.4-5.0) 3.2 g/dL (3.4-5.0) Albumin/Globulin Ratio 0.9 (1.0-1.7) Lipase 1348 U/L (73-393) 956 U/L (73-393) Direct Bilirubin 0.1 mg/dL (0.0-0.2) Triglycerides Level 60 mg/dL (0-150) Cholesterol Level 140 mg/dL (0-200) LDL Cholesterol, Calculated 92 mg/dL (0-100) VLDL Cholesterol, Calculated 12 mg/dL (0-40) Non-HDL Cholesterol Calculated 104 mg/dL (0-129) HDL Cholesterol 36 mg/dL (40-60) Cholesterol/HDL Ratio 3.9 Test 09/20/18 07:54 09/20/18 11:12 Glucose (Fingerstick) 110 mg/dL (70-99) 115 mg/dL (70-99) Laboratory Tests Test 09/20/18 06:22 09/20/18 07:54 09/20/18 11:12 Total Bilirubin 0.4 mg/dL (0.2-1.0) Direct Bilirubin 0.1 mg/dL (0.0-0.2) Aspartate Amino Transf (AST/SGOT) 14 U/L (15-37) Alanine Aminotransferase (ALT/SGPT) 20 U/L (14-59) Alkaline Phosphatase 76 U/L (46-116) Total Protein 7.2 g/dL (6.4-8.2) Albumin 3.2 g/dL (3.4-5.0) Triglycerides Level 60 mg/dL (0-150) Cholesterol Level 140 mg/dL (0-200) LDL Cholesterol, Calculated 92 mg/dL (0-100) VLDL Cholesterol, Calculated 12 mg/dL (0-40) Non-HDL Cholesterol Calculated 104 mg/dL (0-129) HDL Cholesterol 36 mg/dL (40-60) Cholesterol/HDL Ratio 3.9 Lipase 956 U/L (73-393) Glucose (Fingerstick) 110 mg/dL (70-99) 115 mg/dL (70-99) Medications Current Medications Sodium Chloride 1,000 ml @ 1,000 mls/hr 1X ONCE IV Last administered on 00:40; Start 09/19/18 at 00:00; Stop 09/19/18 at 00:59; Status DC Multi-Ingredient Mouthwash/Gargle (Gi Cocktail) 20 ml 1X ONCE SWSW Last administered on 09/19/18at 00:38; Start 09/19/18 at 00:00; Stop 09/19/18 at 00:28 ; Status DC Acetaminophen (Tylenol) 1,000 mg 1X ONCE PO Last administered on 09/19/18 00: 38; Start 09/19/18 at 00:00; Stop 09/19/18 at 00:28; Status DC Ondansetron HCl (Zofran) 4 mg PRN Q8HRS PRN IV NAUSEA/VOMITING Last administered on 09/19/18 00:40; Start 09/19/18 at 00:30; Stop 09/20/18 at 00:29 ; Status DC Morphine Sulfate (Morphine Sulfate) 4 mg PRN Q2HR PRN IV PAIN Last administered on 3/10/19at 08:50; Start 09/19/18 at 00:30; Stop 09/20/18 at 00:29 ; Status DC Sodium Chloride 1,000 ml @ 125 mls/hr Q8H IV Last administered on 09/19/18at 15 :22; Start 09/19/18 at 00:30; Stop 09/20/18 at 00:29; Status DC Iohexol (Omnipaque 300 Mg/ml) 75 ml 1X ONCE IV Last administered on 09/19/18at 01:44; Start 09/19/18 at 01:30; Stop 09/19/18 at 01:31; Status DC Info (CONTRAST GIVEN -- Rx MONITORING) 1 each PRN DAILY PRN MC SEE COMMENTS; Start 09/19/18 at 01:30; Stop 09/21/18 at 01:29 Active Scripts Active Reported Lipitor (Atorvastatin Calcium) 20 Mg Tablet 20 Mg PO HS Zyrtec (Cetirizine Hcl) 10 Mg Capsule 10 Mg PO DAILY PRN Vitamin D2 (Ergocalciferol (Vitamin D2)) 50,000 Unit Capsule 1 Cap PO WEEKLY Tradjenta (Linagliptin) 5 Mg Tablet 5 Mg PO DAILY Lisinopril 10 Mg Tablet 1 Tab PO DAILY Fluticasone Propionate Nasal [place] (Fluticasone Propionate) 16 Gm [place].susp 2 [place] NS HS Gabapentin (Gabapentin) 300 Mg Capsule 300 Mg PO HS Protonix (Pantoprazole Sodium) 20 Mg Tablet.dr 1 Tab PO DAILY Metformin Hcl 500 Mg Tablet 500 Mg PO BIDWMEALS Vitals/I & O Vital Sign - Last 24 Hours 09/19/18 09/19/18 09/19/18 09/19/18 14:36 19:00 20:00 23:00 Temp 97.9 98.7 97.9 98.7 Pulse 101 102 105 Resp 18 19 20 B/P (MAP) 132/74 (93) 150/90 (110) 148/99 (115) Pulse Ox 95 95 100 O2 Delivery Room Air Room Air Room Air Room Air 09/20/18 09/20/18 09/20/18 09/20/18 03:00 07:00 07:45 11:10 Temp 99.7 97.9 97.9 99.7 97.9 97.9 Pulse 105 98 98 Resp 18 18 B/P (MAP) 145/95 (112) 143/84 (103) 147/87 (107) Pulse Ox 99 99 96 O2 Delivery Room Air Room Air Room Air Room Air Intake and Output 09/19/18 09/19/18 09/20/18 14:59 22:59 06:59 Intake Total 900 ml 300 ml Output Total 0 ml Balance 900 ml 300 ml 0 ml CHACHA AHUJA MD Sep 20, 2018 13:48
[2018-09-20] MEDS: PANTOPRAZOLE 40 MG TABLET.DR. PO SCH (14:49)
[2018-09-20] MEDS: LISINOPRIL 10 MG TABLET PO SCH (14:49)
[2018-09-20] MEDS: LINAGLIPTIN 5 MG TABLET PO SCH (14:49)
[2018-09-20 15:00] VITALS: BP 145/84
[2018-09-20 19:00] VITALS: BP 159/82
[2018-09-20] MEDS ORDERED: ATORVASTATIN CALCIUM 20 MG TABLET PO SCH (21:00)
[2018-09-20] MEDS ORDERED: FLUTICASONE 50MCG/NASAL SPRAY 16GM BOTTLE. NS SCH (21:00)
[2018-09-20] MEDS ORDERED: GABAPENTIN 300 MG CAPSULE. PO SCH (21:00)
[2018-09-20 23:00] VITALS: BP 149/95
[2018-09-20] MEDS ORDERED: HYDROcodone/APAP 5/325MG 1 TAB TABLET PO PRN (23:45)
[2018-09-21 03:00] VITALS: BP 128/89
[2018-09-21] MEDS: PANTOPRAZOLE 40 MG TABLET.DR. PO SCH (06:15)
[2018-09-21 07:00] VITALS: BP 125/80
[2018-09-21] MEDS ORDERED: metFORMIN 500 MG TABLET PO SCH (08:00)
[2018-09-21] MEDS: LINAGLIPTIN 5 MG TABLET PO SCH (08:46)
[2018-09-21] MEDS: LISINOPRIL 10 MG TABLET PO SCH (08:46)
[2018-09-21] MEDS ORDERED: CETIRIZINE HCL 10 MG TABLET. PO PRN (09:00)
--- NOTE | 2018-09-21 10:01 | PDOC ---
Subjective: Subjective: Tolerating regular diet. Took a pain pill last night - however, pain is much better overall. Says she feels a lot better today. Objective: Vital Signs: Vital Signs Date Time Temp Pulse Resp B/P (MAP) Pulse Ox O2 Delivery O2 Flow Rate FiO2 09/21/18 08:46 94 125/80 09/21/18 07:00 97.9 18 97 Room Air 97.9 Labs: Laboratory Tests Test 09/20/18 11:12 09/20/18 16:57 09/20/18 22:03 09/21/18 05:45 Glucose (Fingerstick) 115 mg/dL 93 mg/dL 137 mg/dL Lipase 1074 U/L Test 09/21/18 07:30 Glucose (Fingerstick) 138 mg/dL PE: GEN: NAD LUNGS: CTAB HEART: RRR ABD: NABS, S/ND/NT NEURO/PSYCH: A & O 3 A/P: Pancreatitis - ?related to Trulicity.... note getting Tradjenta here -s/p mathew, no alcohol, Ca++ and lipids ok -- Lipase a little more elevated today but pain improved, tolerating diet. DC per primary, follow-up w/ PCP/endocrinology. EGD and colonoscopy as outpt. KATIE OCHOA Sep 21, 2018 10:01
[2018-09-21 11:00] VITALS: BP 140/88
[2018-09-21] MEDS ORDERED: HYDR-2761 PO (13:04)
--- NOTE | 2018-09-21 13:36 | NUR ---
SW following. Discussed with RN and Dr. Boogie. Pt likely to discharge home with self care today after diet advanced. No SW needs.
--- NOTE | 2018-09-21 13:50 | PDOC3 ---
Discharge Summary Visit Information Date of Admission: Sep 19, 2018 Date of Discharge: Sep 21, 2018 Admitting Diagnosis: acute pancreatitis Final Diagnosis acute pancreatitis resolved Abdominal pain secondary to the above resolved Dietary transgression with excess fat in diet History of GERD Obesity with a BMI of 35 Brief Hospital Course Allergies Allergies Coded Allergies Type Severity Reaction Last Updated Verified No Known Drug Allergies 09/19/18 No Vital Signs Vital Signs Date Time Temp Pulse Resp B/P (MAP) Pulse Ox O2 Delivery O2 Flow Rate FiO2 09/21/18 11:00 97.9 101 18 140/88 (105) 96 Room Air 97.9 Lab Results Laboratory Tests Test 09/20/18 06:22 09/20/18 07:54 09/20/18 11:12 09/20/18 16:57 Total Bilirubin 0.4 mg/dL (0.2-1.0) Direct Bilirubin 0.1 mg/dL (0.0-0.2) Aspartate Amino Transf (AST/SGOT) 14 U/L (15-37) Alanine Aminotransferase (ALT/SGPT) 20 U/L (14-59) Alkaline Phosphatase 76 U/L (46-116) Total Protein 7.2 g/dL (6.4-8.2) Albumin 3.2 g/dL (3.4-5.0) Triglycerides Level 60 mg/dL (0-150) Cholesterol Level 140 mg/dL (0-200) LDL Cholesterol, Calculated 92 mg/dL (0-100) VLDL Cholesterol, Calculated 12 mg/dL (0-40) Non-HDL Cholesterol Calculated 104 mg/dL (0-129) HDL Cholesterol 36 mg/dL (40-60) Cholesterol/HDL Ratio 3.9 Lipase 956 U/L (73-393) Glucose (Fingerstick) 110 mg/dL (70-99) 115 mg/dL (70-99) 93 mg/dL (70-99) Test 09/20/18 22:03 09/21/18 05:45 09/21/18 07:30 09/21/18 10:57 Glucose (Fingerstick) 137 mg/dL (70-99) 138 mg/dL (70-99) 156 mg/dL (70-99) Lipase 1074 U/L (73-393) Laboratory Tests Test 09/20/18 16:57 09/20/18 22:03 09/21/18 05:45 09/21/18 07:30 Glucose (Fingerstick) 93 mg/dL (70-99) 137 mg/dL (70-99) 138 mg/dL (70-99) Lipase 1074 U/L (73-393) Test 09/21/18 10:57 Glucose (Fingerstick) 156 mg/dL (70-99) Brief Hospital Course Patient is a 58 yo female with history of DM on Trulicity for 2 years who had been in her usual stated of health until his prior to her admission when she started complaining of epigastric pain with radiation to the back. The patient describes the pain as a sharp sensation 9-10 out of 10 intensity at the worst times intermittent not associated with nausea vomiting or diarrhea. The patient describes her diet very rich in cheese. But she has been doing this for a long time, the patient denies having fried foods, or any other dietary transgressions. The patient also carries a history of GERD on pantoprazole. She had a cholecystectomy for gallstones 30 years ago. She denies excessive alcohol intake no history of liver disease no history of black tarry stools nor hematemesis reported. She was found to have findings consistent with pancreatitis on imaging studies and laboratory data which confirms her diagnosis. Given that the patient has been on to elicit the this will have to be discontinued moving forward Of care has been explained in detail to the patient addressed all the concerns of the best of my abilities Patient kept nothing by mouth the first 24 hours of her hospital stay. She was fluid resuscitated and she responded well to her bowel rest. Patient was able to be fed and second hospital stay despite elevated lipase levels patient clinically improved her lipid panel was reviewed with her and I encouraged her to follow-up in the outpatient setting with her primary care physician in order to address this. She was seen in consultation by GI who recommended EGD and colonoscopy in the outpatient setting. The patient is in good spirits to be discharged home, dietary counseling has been done prior to discharge CONCERNS WERE ADDRESSED TO THE BEST OF MY ABILITIES. Lungs clear to auscultation bilaterally with good inspiratory effort and Cardia vascular S1-S2 regular rhythm no murmurs calls or rubs line abdomen soft nontender bowel sounds present hepatosplenomegaly appreciated Discharge Information Condition at Discharge: Improved Follow Up: Weeks Disposition/Orders: D/C to Home Scheduled Atorvastatin Calcium (Lipitor) 20 Mg Tablet, 20 MG PO HS for FOR CHOLESTEROL, Ref 0 (Reported) Entered as Reported by: LISETTE AMARO on 09/20/181137 Last Action: Continued on 09/20/181349 by CHACHA AHUJA MD Ergocalciferol (Vitamin D2) (Vitamin D2) 50,000 Unit Capsule, 1 CAP PO WEEKLY for n, Ref 0 (Reported) Entered as Reported by: LISETTE AMARO on 09/20/181137 Last Action: Continued on 09/20/181349 by CHACHA AHUJA MD Fluticasone Propionate (Fluticasone Propionate Nasal [place]) 16 Gm [place].susp, 2 SPRAY NS HS for decongestion, #1 Ref 0 (Reported) Entered as Reported by: LISETTE AMARO on 09/20/181137 Last Action: Continued on 09/20/181349 by CHACHA AHUJA MD Gabapentin (Gabapentin ) 300 Mg Capsule, 300 MG PO HS for NEUROGENIC PAIN, ( Reported) Entered as Reported by: LISETTE AMARO on 09/20/181137 Last Action: Continued on 09/20/181349 by CHACHA AHUJA MD Linagliptin (Tradjenta) 5 Mg Tablet, 5 MG PO DAILY for TYPE 2 DIABETES, ( Reported) Entered as Reported by: LISETTE AMARO on 09/20/181137 Last Action: Continued on 09/20/181351 by CHACHA AHUJA MD Lisinopril (Lisinopril) 10 Mg Tablet, 1 TAB PO DAILY for blood press, Ref 0 ( Reported) Entered as Reported by: LISETTE AMARO on 09/20/181137 Last Action: Continued on 09/20/181349 by CHACHA AHUJA MD Metformin Hcl (Metformin Hcl) 500 Mg Tablet, 500 MG PO BIDWMEALS for ANTI- DIABETIC, Ref 0 (Reported) Entered as Reported by: LISETTE AMARO on 09/20/181137 Last Action: Converted on 09/20/181349 by CHACHA AHUJA MD Pantoprazole Sodium (Protonix) 20 Mg Tablet.dr, 1 TAB PO DAILY for acid reflux, #30 (Reported) Entered as Reported by: LISETTE AMARO on 09/20/181137 Last Action: Converted on 09/20/181349 by CHACHA AHUJA MD Scheduled PRN Cetirizine Hcl (Zyrtec) 10 Mg Capsule, 10 MG PO DAILY PRN for ALLERGIES, ( Reported) Entered as Reported by: LISETTE AMARO on 09/20/18 1138 Last Action: Converted on 09/20/18 1350 by CHACHA AHUJA MD Hydrocodone Bit/Acetaminophen (Hydrocodone-Apap 5-325 ) 1 Tab Tablet, 1 TAB PO PRN Q6HRS PRN for PAIN for 3 Days, #12 Prescribed by: CHACHA AHUJA MD on 09/21/18 1304 CHACHA AHUJA MD Sep 21, 2018 13:50
[2018-09-21 21:09] LABS: IGG1 623 mg/dL (248-810); IGG2 378 mg/dL (130-555); IGG3 106 mg/dL (15-102); IGG4 13 mg/dL (2-96); TOTAL IGG 1090 mg/dL (700-1600)
[2018-09-27] MEDS ORDERED: ERGOCALCIFEROL (VITAMIN D2) 50,000 UNIT CAPSULE. PO SCH (09:00)
== END 2018-09-21 15:05 | disposition home or self-care (01) | DRG 440 ==
LOC: ER 22:35 → 5 SOUTH 09-19 00:25
PROVIDERS: ADMIT Internal Medicine; ATTEND Internal Medicine
DX: K85.90 Acute pancreatitis without necrosis or infection, unspecified (principal); Z68.35 Body mass index [BMI] 35.0-35.9, adult; E11.9 Type 2 diabetes mellitus without complications; E66.9 Obesity, unspecified; D25.9 Leiomyoma of uterus, unspecified; K21.9 Gastro-esophageal reflux disease without esophagitis; R16.2 Hepatomegaly with splenomegaly, not elsewhere classified; Z71.3 Dietary counseling and surveillance
CPT/HCPCS: 36415; 74177; 80053; 80061; 80076; 81001; 81025; 82787; 82962; 83690; 84484; 85025; 87086; 93005; 96374; J2270; J2405; J7030; Q9967; 99285-25

== ENCOUNTER → 2019-05-04 | Outpatient (CLI) | payer OTHER ==
[~2019-05-04] MED LIST: ATOR20TA PO; CETI10CA PO; ERGO500027 PO; FLUT16SP NS; GABA300C18 PO; HYDR-2761 PO; LINA5TAB PO; LISI10TA2 PO; METF500T16 PO; PANT20TA2 PO
--- NOTE | 2019-05-04 11:06 | RAD ---
DATE: 05/04/2019. EXAM: DIGITAL SCREEN BILAT W/CAD. HISTORY: Routine mammographic screening. COMPARISON: 04/23/2018. This study was interpreted with the benefit of Computerized Aided Detection (CAD). FINDINGS: Breast Density: SCATTERED The breast parenchyma shows scattered fibroglandular densities. Breast parenchyma level B.. A few scattered calcifications are benign. There are no suspicious masses, microcalcifications or architectural distortion. The parenchymal pattern is stable. BI-RADS CATEGORY: 2 BENIGN FINDING(S). RECOMMENDED FOLLOW-UP: 12M 12 MONTH FOLLOW-UP. PQRS compliance statement: Patient information was entered into a reminder system with a target due date 05/04/2020 for the next mammogram. Mammography is a sensitive method for finding small breast cancers, but it does not detect them all and is not a substitute for careful clinical examination. A negative mammogram does not negate a clinically suspicious finding and should not result in delay in biopsying a clinically suspicious abnormality. "Our facility is accredited by the [employer] Mammography [employer]."
== END | disposition home or self-care (01) ==
LOC: MAMMO 08:52
PROVIDERS: ATTEND Pediatrics
DX: Z12.31 Encounter for screening mammogram for malignant neoplasm of breast (principal); N64.89 Other specified disorders of breast
CPT/HCPCS: 77067

== ENCOUNTER → 2020-08-13 | Outpatient (CLI) | payer OTHER ==
[~2020-08-13] MED LIST changes: +LISI10TA16 PO; -LISI10TA2 PO
--- NOTE | 2020-08-14 13:50 | RAD ---
DATE: 08/13/2020 2:35 PM EXAM: DIGITAL SCREEN BILAT W/CAD HISTORY: Screening COMPARISON: 05/04/2019 Bilateral full field craniocaudal and mediolateral oblique images were obtained using digital technique. This study was interpreted with the benefit of Computerized Aided Detection (CAD). FINDINGS: Breast Density: SCATTERED The breast parenchyma shows scattered fibroglandular densities. Breast parenchyma level B No suspicious masses, microcalcifications or architectural distortion is present to suggest malignancy in either breast. The visualized axillae are unremarkable. IMPRESSION: No mammographic evidence of malignancy. BI-RADS CATEGORY: 1 NEGATIVE RECOMMENDED FOLLOW-UP: 12M 12 MONTH FOLLOW-UP Annual screening mammography is recommended, unless clinically indicated sooner based on symptoms or change in physical exam. PQRS compliance statement: Patient information was entered into a reminder system with a target due date for the next mammogram. Mammography is a sensitive method for finding small breast cancers, but it does not detect them all and is not a substitute for careful clinical examination. A negative mammogram does not negate a clinically suspicious finding and should not result in delay in biopsying a clinically suspicious abnormality. "Our facility is accredited by the [employer] Mammography [employer]."
== END ==
LOC: MAMMO 14:38
PROVIDERS: ATTEND Pediatrics
DX: Z12.31 Encounter for screening mammogram for malignant neoplasm of breast (principal)
CPT/HCPCS: 77067

== ENCOUNTER → 2021-08-14 | Outpatient (CLI) | payer BC ==
--- NOTE | 2021-08-14 10:57 | RAD ---
DATE: 08/14/2021 EXAM: MG 2D BILAT SCREENING HISTORY: Screening. Family history of mother with breast cancer at age of 50. COMPARISON: Multiple prior mammograms dating back to 07/11/2021 This study was interpreted with the benefit of Computerized Aided Detection (CAD). Breast Density: SCATTERED The breast parenchyma shows scattered fibroglandular densities. Breast pare nchyma level B. FINDINGS: Intramammary lymph nodes in the upper outer breasts are unchanged. No suspicious mass, arch itectural distortion, or suspicious calcifications. IMPRESSION: No evidence of malignancy. BI-RADS CATEGORY: 2 BENIGN FINDING(S) RECOMMENDED FOLLOW-UP: 12M 12 MONTH FOLLOW-UP PQRS compliance statement: Patient information was entered into a reminder system with a target due d ate for the next mammogram. Mammography is a sensitive method for finding small breast cancers, but it does not detect them all a nd is not a substitute for careful clinical examination. A negative mammogram does not negate a clin ically suspicious finding and should not result in delay in biopsying a clinically suspicious abnorma lity. "Our facility is accredited by the [employer] Mammography [employer]." Electronically signed by: Bonita Ha MD (08/14/2021 10:54 AM) [email or web address]
== END ==
LOC: MAMMO 09:57
PROVIDERS: ATTEND Pediatrics
DX: Z12.31 Encounter for screening mammogram for malignant neoplasm of breast (principal)
CPT/HCPCS: 77067